=== PATIENT | female | born 1950 | race Caucasian/White ===

== ENCOUNTER 2018-01-22 08:13 | Outpatient (CLI) | payer MEDICARE ==
[2018-01-22 12:21] LABS: CHOL/HDL RATIO 3.1 (<4.4); CHOLESTEROL 228 mg/dL; HDL CHOLESTEROL 74 mg/dL; LDL CHOLESTEROL,CALCULATED 136 mg/dL; LDL/HDL RATIO 1.8 (<4.4); VLDL CHOLESTEROL 18 mg/dL
== END 2018-01-22 08:14 | disposition home or self-care (01) ==
LOC: LAB.F 08:13
PROVIDERS: ATTEND Nurse Practitioner Primary Care
DX: E78.5 Hyperlipidemia, unspecified (principal)
CPT/HCPCS: 36415; 80061; 83721

== ENCOUNTER 2018-01-22 12:50 | Outpatient (CLI) | payer MEDICARE ==
--- NOTE | 2018-01-24 12:30 | Mammography Report ---
Reason: SCREEN w HORACIO Procedure Date: 01/22/2018 Accession Number: [id number] / [id number] Procedure: CRISTOBAL - Screening Mammo w/Horacio CPT Code: FULL RESULT: EXAM: Screening Mammo w/Horacio DATE: 01/22/2018 1:16 PM CLINICAL HISTORY: Routine screening; prior history of benign breast surgery. TECHNIQUE: Bilateral CC and MLO views were obtained. COMPARISON: 03/08/2016, 02/09/2015, 05/07/2014, 05/04/2013 and 04/23/2012 FINDINGS: The breast tissue is heterogeneously dense. No significant interval change. No suspicious masses, clustered microcalcifications, or regions of architectural distortion are identified. IMPRESSION: Negative examination. RECOMMENDATION: Routine annual screening unless otherwise clinically indicated. BIRADS CATEGORY 1: Negative STANDARD QUALIFYING STATEMENTS: 1. This examination was not reviewed with the aid of Computer-Aided Detection (CAD). 2. A negative or benign imaging report should not delay biopsy if clinically suspicious findings are present. Consider surgical consultation if warrented. More than 5% of cancers are not identified by imaging. 3. Dense breasts may obscure an underlying neoplasm. 4. This examination was reviewed with the aid of 3D breast imaging (tomosynthesis).
== END 2018-01-22 12:51 | disposition home or self-care (01) ==
LOC: DI 12:50
DX: Z12.31 Encounter for screening mammogram for malignant neoplasm of breast (principal)
CPT/HCPCS: 77063; 77067

== ENCOUNTER 2018-01-30 08:31 | Outpatient (CLI) | payer MEDICARE ==
[2018-01-30 10:16] LABS: BASOPHILS % (AUTO) 1.3 %; EOSINOPHILS # (AUTO) 0.1 10^3/uL (0.0-0.7); HGB - HEMOGLOBIN 13.3 g/dL (12.0-16.0); LYMPHOCYTES % (AUTO) 27.4 %; MEAN CORPUSCULAR HGB CONC 34.4 g/dL (32.0-36.0); MEAN PLATELET VOLUME 8.1 fL (7.9-10.8); MONOCYTES # (AUTO) 0.3 10^3/uL (0.0-1.0); MONOCYTES % (AUTO) 8.4 %; NEUTROPHILS # (AUTO) 2.3 10^3/uL (1.5-6.6); NEUTROPHILS % (AUTO) 59.9 %; PLT - PLATELET COUNT 186 10^3/uL (130-450); RED BLOOD COUNT 4.29 10^6/uL (4.20-5.40); RED CELL DISTRIBUTION WIDTH 12.7 % (12.0-15.0); WHITE BLOOD COUNT 3.8 x10^3/uL (4.8-10.8)
[2018-01-30 10:49] LABS: ALBUMIN/GLOBULIN RATIO 1.6 (1.0-2.2); CREATININE 0.7 mg/dL (0.4-1.0); TOTAL PROTEIN 6.5 g/dL (6.7-8.2)
[2018-01-30 11:06] LABS: HEMOGLOBIN A1C 0.53 g/dL; HEMOGLOBIN A1C % 5.6 % (4.6-6.2)
== END 2018-01-30 08:32 | disposition home or self-care (01) ==
LOC: LAB.F 08:31
PROVIDERS: ATTEND Nurse Practitioner Primary Care
DX: E78.5 Hyperlipidemia, unspecified (principal); Z79.899 Other long term (current) drug therapy
CPT/HCPCS: 36415; 80053; 83036; 84443; 85025

== ENCOUNTER 2018-02-11 09:47 | Outpatient (CLI) | payer MEDICARE ==
--- NOTE | 2018-02-12 12:02 | DEXA Report ---
Reason: POST MENOPAUSAL Procedure Date: 02/11/2018 Accession Number: [id number] / [id number] Procedure: DEX - Dexa Spine and/or Hip CPT Code: FULL RESULT: EXAM: Dexa Spine and/or Hip DATE: 02/11/2018 12:12 PM CLINICAL HISTORY: POST MENOPAUSAL TECHNIQUE: Dual energy x-ray absorptiometry (DXA) was performed on a [employer] System. Regions measured are the AP Spine, femoral neck, and if needed forearm. COMPARISON: None. In accordance with the International Society for Clinical Densitometry (ISCD) guidelines, data from previous exams may be reanalyzed using current recommendations and techniques. This is done to allow a more accurate basis for comparison with the current study. FINDINGS: The data for the lumbar spine is as follows: BMD (g/cm/cm) T-SCORE Z-SCORE REGION L1 1.232 0.8 2.3 L2 1.317 1.0 2.4 L3 1.392 1.6 3.1 L4 1.393 1.6 3.1 TOTAL 1.339 1.3 2.8 NOTE: All evaluable vertebrae are used for classification The data for the hip is as follows: BMD (g/cm/cm) T-SCORE Z-SCORE REGION Neck 0.834 -1.5 0.0 TOTAL 0.898 -0.9 0.4 NOTE: The femoral neck or total proximal femur, whichever is lowest, is used for classification. IMPRESSION: THE WHO CLASSIFICATION BASED ON THE INTERNATIONAL REFERENCE STANDARD IS OSTEOPENIA. THE FRACTURE RISK IS INCREASED. RECOMMENDATION: Patients with diagnosis of osteoporosis or osteopenia should have regular bone mineral density assessment. For those eligible for Medicare, routine testing is allowed once every 2 years. Testing frequency can be increased for patients who have rapidly progressing disease or for those who are receiving medical therapy to restore bone mass. COMMENT: World Health Organization (WHO) definitions for osteoporosis and osteopenia: NORMAL BMD: T-score at -1.0 or higher, fracture risk is low OSTEOPENIA BMD: T-score between -1.0 and -2.5, fracture risk is increased. OSTEOPOROSIS BMD: T-score at -2.5 or lower, fracture risk is high. National Osteoporosis Foundation recommends: 1. Obtain adequate dietary calcium (at least 1200 mg per day) and vitamin D (400-800 international units per day). 2. Participate, as appropriate, in regular weightbearing and muscle-strengthening exercise. 3. Avoid tobacco use and reduce alcohol and caffeine intake. 4. For more detailed information see the website at www.NOF.org.
== END 2018-02-11 09:48 | disposition home or self-care (01) ==
LOC: DI 09:47
PROVIDERS: ATTEND Nurse Practitioner Primary Care
DX: M85.89 Other specified disorders of bone density and structure, multiple sites (principal); Z78.0 Asymptomatic menopausal state
CPT/HCPCS: 77080

== ENCOUNTER 2018-03-25 13:00 | Outpatient (CLI) | payer MEDICARE ==
--- NOTE | 2018-03-26 16:00 | XRAY Report ---
Reason: BURSITIS,LEFT KNEE,KNEE JOIN PAIN,LEFT Procedure Date: 03/25/2018 Accession Number: [id number] / [id number] Procedure: XR - Knee 4 View LT CPT Code: FULL RESULT: EXAM: LEFT KNEE RADIOGRAPHY EXAM DATE: 03/25/2018 01:35 PM. CLINICAL HISTORY: BURSITIS,LEFT KNEE,KNEE JOIN PAIN,LEFT. COMPARISON: None. TECHNIQUE: 4 views. FINDINGS: Bones: Normal. No fractures or bone lesions. Joints: Spurring of the tibial spines is noted. Mild left medial joint space narrowing. No effusions. Normal alignment. Soft Tissues: Normal. No soft tissue swelling. IMPRESSION: 1. Mild left medial compartment arthritis. 2. No fracture or malalignment. 3. No effusions. RADIA
== END 2018-03-25 13:01 | disposition home or self-care (01) ==
LOC: DI 13:00
PROVIDERS: ATTEND Nurse Practitioner Primary Care
DX: M17.12 Unilateral primary osteoarthritis, left knee (principal); M70.52 Other bursitis of knee, left knee

== ENCOUNTER 2019-04-29 09:46 | Outpatient (CLI) | payer MEDICARE ==
[2019-04-29 18:16] LABS: ALBUMIN 3.7 g/dL (3.2-5.5); ALBUMIN/GLOBULIN RATIO 1.4 (1.0-2.2); ALKALINE PHOSPHATASE 74 IU/L (42-121); ALT ALANINE AMINOTRANSFERASE 30 IU/L (10-60); AST ASPARTATE AMINOTRANSFERASE 33 IU/L (10-42); BILIRUBIN,TOTAL 0.5 mg/dL (0.2-1.0); BUN - BLOOD UREA NITROGEN 14 mg/dL (6-20); CALCIUM 8.7 mg/dL (8.5-10.3); CARBON DIOXIDE - CO2 27 mmol/L (21-32); CHLORIDE 106 mmol/L (101-111); CHOL/HDL RATIO 3.1 (<4.4); CHOLESTEROL 208 mg/dL; CREATININE 0.7 mg/dL (0.4-1.0); GFR - MDRD 83 (>89); GLUCOSE 106 mg/dL (70-100); HDL CHOLESTEROL 68 mg/dL; LDL CHOLESTEROL,CALCULATED 128 mg/dL; LDL/HDL RATIO 1.9 (<4.4); SODIUM 139 mmol/L (135-145); TOTAL PROTEIN 6.4 g/dL (6.7-8.2); VLDL CHOLESTEROL 12 mg/dL
== END 2019-04-29 09:47 | disposition home or self-care (01) ==
LOC: LAB.S 09:46
PROVIDERS: ATTEND Internal Medicine
DX: E78.5 Hyperlipidemia, unspecified (principal)
CPT/HCPCS: 36415; 80053; 80061; 83721

== ENCOUNTER 2019-08-03 16:44 | Outpatient (CLI) | payer MEDICARE | END 2019-08-03 16:45 | disposition home or self-care (01) | LOC: COV 16:44 | PROVIDERS: ATTEND Family Medicine | DX: R06.02 Shortness of breath (principal); J02.9 Acute pharyngitis, unspecified | CPT/HCPCS: 81599 ==

== ENCOUNTER 2019-11-06 12:20 | Outpatient (CLI) | payer MEDICARE | END 2019-11-06 12:21 | disposition home or self-care (01) | LOC: COV 12:20 | PROVIDERS: ATTEND Family Medicine | DX: J02.9 Acute pharyngitis, unspecified (principal); Z20.828 Contact with and (suspected) exposure to other viral communicable diseases ==

== ENCOUNTER 2020-04-18 13:02 | Outpatient (CLI) | payer MEDICARE ==
--- NOTE | 2020-04-18 13:30 | XRAY Report ---
PROCEDURE: Ankle 3 View LT INDICATIONS: LEFT ANKLE PAIN TECHNIQUE: 3 views of the ankle were acquired. COMPARISON: None. FINDINGS: Bones: No fractures or dislocations are found involving the hindfoot, however there is a minimally d isplaced lateral malleolar fracture, centered just above the ankle mortise joint axial level. The brian nt itself is not widened. There may be a thin avulsion fragment at the inferior tip of the medial mal leolus.. Ankle mortise is normally aligned. No suspicious bony lesions. Soft tissues: No tibiotalar joint effusion. Achilles tendon appears normal. IMPRESSION: Definite metadiaphyseal junction fracture, minimally displaced, involving the lateral ma lleolus/distal fibular. Possible thin avulsion fragment at the inferior tip of the medial malleolus. Ankle mortise joint currently is not displaced. Reviewed by: Milton Khan MD on 04/18/2020 1:29 PM [facility] Approved by: Milton Khan MD on 04/18/2020 1:29 PM [facility] Station ID: [id number]
== END 2020-04-18 23:59 | disposition home or self-care (01) ==
LOC: DI.S 13:02
PROVIDERS: ATTEND Physician Assistant
DX: S82.62XA Displaced fracture of lateral malleolus of left fibula, initial encounter for closed fracture (principal)

== ENCOUNTER 2020-04-22 11:23 | Outpatient (CLI) | payer MEDICARE ==
--- NOTE | 2020-04-22 16:40 | XRAY Report ---
PROCEDURE: Ankle 3 View LT INDICATIONS: LEFT ANKLE Fx- EXAM WB TECHNIQUE: 3 views of the ankle were acquired. COMPARISON: 04/18/2020 FINDINGS: Bones: Stable appearance and alignment of known oblique fracture of the distal left fibula. Previousl y described curvilinear ossification near the tip of the medial malleolus is not appreciated on today 's exam. Ankle mortise is normally aligned. No suspicious bony lesions. Small retrocalcaneal spur. Soft tissues: Small anterior tibiotalar joint effusion. Achilles tendon appears normal. IMPRESSION: Stable appearance and alignment of oblique fracture of the distal left fibula. Previously described possible avulsion fragment involving the inferior tip of the medial malleolus is not appreciated on this study. Ankle mortise is preserved. Reviewed by: Lennox Arriola MD on 04/22/2020 3:39 PM [facility] Approved by: Lennox Arriola MD on 04/22/2020 3:39 PM [facility] Station ID: [id number]
== END 2020-04-22 11:24 | disposition home or self-care (01) ==
LOC: DI.N 11:23
PROVIDERS: ATTEND Physician Assistant
DX: S82.892A Other fracture of left lower leg, initial encounter for closed fracture (principal)

== ENCOUNTER 2020-05-02 09:11 | Outpatient (CLI) | payer MEDICARE ==
[2020-05-02 15:17] LABS: BASOPHILS # (AUTO) 0.1 10^3/uL (0.0-0.1); BASOPHILS % (AUTO) 1.7 %; EOSINOPHILS # (AUTO) 0.2 10^3/uL (0.0-0.7); EOSINOPHILS % (AUTO) 4.5 %; HGB - HEMOGLOBIN 12.7 g/dL (12.0-16.0); LYMPHOCYTES # (AUTO) 0.8 10^3/uL (1.5-3.5); MEAN CORPUSCULAR HEMOGLOBIN 28.8 pg (27.0-31.0); MEAN CORPUSCULAR HGB CONC 31.5 g/dL (32.0-36.0); MEAN CORPUSCULAR VOLUME 91.4 fL (81.0-99.0); MEAN PLATELET VOLUME 10.1 fL (7.9-10.8); MONOCYTES # (AUTO) 0.4 10^3/uL (0.0-1.0); MONOCYTES % (AUTO) 8.6 %; NEUTROPHILS # (AUTO) 2.8 10^3/uL (1.5-6.6); PLT - PLATELET COUNT 205 10^3/uL (130-450); RED BLOOD COUNT 4.41 10^6/uL (4.20-5.40); RED CELL DISTRIBUTION WIDTH 13.4 % (12.0-15.0); WHITE BLOOD COUNT 4.2 x10^3/uL (4.8-10.8)
[2020-05-02 15:50] LABS: ALBUMIN/GLOBULIN RATIO 1.5 (1.0-2.2); ALKALINE PHOSPHATASE 82 IU/L (42-121); ALT ALANINE AMINOTRANSFERASE 19 IU/L (10-60); AST ASPARTATE AMINOTRANSFERASE 26 IU/L (10-42); BILIRUBIN,TOTAL 0.8 mg/dL (0.2-1.0); BUN - BLOOD UREA NITROGEN 14 mg/dL (6-20); CALCIUM 9.3 mg/dL (8.5-10.3); CARBON DIOXIDE - CO2 30 mmol/L (21-32); CHLORIDE 106 mmol/L (101-111); CHOL/HDL RATIO 3.1 (<4.4); CHOLESTEROL 185 mg/dL; CREATININE 0.7 mg/dL (0.4-1.0); GLUCOSE 102 mg/dL (70-100); HDL CHOLESTEROL 59 mg/dL; LDL CHOLESTEROL,CALCULATED 106 mg/dL; LDL/HDL RATIO 1.8 (<4.4); TOTAL PROTEIN 6.6 g/dL (6.7-8.2); VLDL CHOLESTEROL 20 mg/dL
== END 2020-05-02 09:12 | disposition home or self-care (01) ==
LOC: LAB.S 09:11
PROVIDERS: ATTEND Internal Medicine
DX: Z00.00 Encounter for general adult medical examination without abnormal findings (principal); E78.5 Hyperlipidemia, unspecified
CPT/HCPCS: 36415; 80053; 80061; 83721; 85025

== ENCOUNTER 2020-05-18 10:49 | Outpatient (CLI) | payer MEDICARE ==
--- NOTE | 2020-05-18 15:40 | DEXA Report ---
PROCEDURE: Dexa Spine and/or Hip INDICATIONS: POST MENOPAUSAL TECHNIQUE: Dual energy x-ray absorptiometry (DXA) was performed on a [employer]ation System. Regions measur ed are the AP Spine, femoral neck, and if needed forearm. COMPARISON: Dexa, 02/11/2018. FINDINGS: Lumbar Spine: Bone Mineral Density 1.409 g/cm/cm,T score 1.9, improved Left Hip: Bone Mineral Density 0.887 g/cm/cm,T score , -1.0, not significantly changed Left Femoral Neck: Bone Mineral Density 0.847 g/cm/cm, T score -1.4, (T score greater or equal to -1.0: NORMAL) (T score from -1.1 to -2.4: OSTEOPENIA) (T score less than or equal to -2.5 to: OSTEOPOROSIS) Impression: Based on WHO criteria, the patient is osteopenic. Compared to the last exam on 02/11/2018 , the patient's bone mineral density of the lumbar spine is improved. The patient's bone mineral dens ity of the left femoral head and neck is unchanged. Patients with diagnosis of osteoporosis or osteopenia should have regular bone mineral density assess ment. For those eligible for Medicare, routine testing is allowed once every 2 years. Testing frequ ency can be increased for patients who have rapidly progressing disease or for those who are receivin g medical therapy to restore bone mass. Reviewed by: Reed Manrique MD on 05/18/2020 3:39 PM PST Approved by: Reed Manrique MD on 05/18/2020 3:39 PM PST Station ID: [id number]
== END 2020-05-18 10:50 | disposition home or self-care (01) ==
LOC: DI 10:49
PROVIDERS: ATTEND Internal Medicine
DX: M85.89 Other specified disorders of bone density and structure, multiple sites (principal); Z78.0 Asymptomatic menopausal state

== ENCOUNTER 2020-06-06 11:18 | Outpatient (CLI) | payer MEDICARE ==
--- NOTE | 2020-06-06 11:42 | XRAY Report ---
PROCEDURE: Ankle 3 View LT INDICATIONS: LEFT ANKLE FRACTURE TECHNIQUE: 3 views of the ankle were acquired. COMPARISON: Left ankle radiographs dated 04/22/2020 FINDINGS: Bones: A minimally displaced fracture of the left fibular metaphysis is redemonstrated with periostea l reaction that is compatible with progressive healing changes. No new osseous abnormality is seen. A posterior calcaneal spur is present. Soft tissues: Soft tissue edema is seen surrounding the ankle. IMPRESSION: Progressive interval healing changes involving the distal fibular fracture with unchange d alignment. Reviewed by: Gregory Alonso MD on 06/06/2020 11:40 AM PST Approved by: Gregory Alonso MD on 06/06/2020 11:40 AM PST Station ID: [id number]
== END 2020-06-06 23:59 | disposition home or self-care (01) ==
LOC: DI.N 11:18
PROVIDERS: ATTEND Physician Assistant
DX: S82.832D Other fracture of upper and lower end of left fibula, subsequent encounter for closed fracture with routine healing (principal)

== ENCOUNTER 2021-05-12 07:56 | Outpatient (CLI) | payer MEDICARE ==
[2021-05-12 14:38] LABS: BASOPHILS # (AUTO) 0.1 10^3/uL (0.0-0.1); BASOPHILS % (AUTO) 1.5 %; EOSINOPHILS # (AUTO) 0.1 10^3/uL (0.0-0.7); EOSINOPHILS % (AUTO) 2.9 %; HCT - HEMATOCRIT 38.6 % (37.0-47.0); HGB - HEMOGLOBIN 12.6 g/dL (12.0-16.0); LYMPHOCYTES # (AUTO) 1.3 10^3/uL (1.5-3.5); LYMPHOCYTES % (AUTO) 31.2 %; MEAN CORPUSCULAR HEMOGLOBIN 30.1 pg (27.0-31.0); MEAN CORPUSCULAR HGB CONC 32.6 g/dL (32.0-36.0); MEAN CORPUSCULAR VOLUME 92.3 fL (81.0-99.0); MEAN PLATELET VOLUME 10.1 fL (7.9-10.8); MONOCYTES # (AUTO) 0.4 10^3/uL (0.0-1.0); MONOCYTES % (AUTO) 8.5 %; NEUTROPHILS # (AUTO) 2.3 10^3/uL (1.5-6.6); NEUTROPHILS % (AUTO) 55.7 %; PLT - PLATELET COUNT 193 10^3/uL (130-450); RED BLOOD COUNT 4.18 10^6/uL (4.20-5.40); WHITE BLOOD COUNT 4.1 x10^3/uL (4.8-10.8)
[2021-05-12 14:55] LABS: ALBUMIN 3.9 g/dL (3.2-5.5); ALBUMIN/GLOBULIN RATIO 1.4 (1.0-2.2); ALKALINE PHOSPHATASE 78 IU/L (42-121); ALT ALANINE AMINOTRANSFERASE 21 IU/L (10-60); AST ASPARTATE AMINOTRANSFERASE 27 IU/L (10-42); BILIRUBIN,TOTAL 0.6 mg/dL (0.2-1.0); BUN - BLOOD UREA NITROGEN 14 mg/dL (6-20); CARBON DIOXIDE - CO2 30 mmol/L (21-32); CHLORIDE 103 mmol/L (101-111); CHOL/HDL RATIO 3.2 (<4.4); CHOLESTEROL 219 mg/dL; CREATININE 0.7 mg/dL (0.4-1.0); GFR - MDRD 82 (>89); GLUCOSE 103 mg/dL (70-100); HDL CHOLESTEROL 69 mg/dL; LDL CHOLESTEROL,CALCULATED 132 mg/dL; LDL/HDL RATIO 1.9 (<4.4); POTASSIUM 4.4 mmol/L (3.5-5.0); SODIUM 138 mmol/L (135-145); TOTAL PROTEIN 6.7 g/dL (6.7-8.2); TRIGLYCERIDES 88 mg/dL; VLDL CHOLESTEROL 18 mg/dL
[2021-05-12 16:40] LABS: FECAL OCCULT BLOOD (FIT) NEGATIVE (NEGATIVE)
== END 2021-05-12 07:57 | disposition home or self-care (01) ==
LOC: LAB.S 07:56
PROVIDERS: ATTEND Internal Medicine
DX: Z00.00 Encounter for general adult medical examination without abnormal findings (principal); E78.5 Hyperlipidemia, unspecified; Z79.899 Other long term (current) drug therapy
CPT/HCPCS: 36415; 80053; 80061; 82274; 83721; 85025

== ENCOUNTER 2022-05-10 09:57 | Outpatient (CLI) | payer MEDICARE ==
--- NOTE | 2022-05-10 12:59 | XRAY Report ---
PROCEDURE: Knee 2 View LT INDICATIONS: KNEE PAIN,LEFT TECHNIQUE: 2 views of the left knee were acquired. COMPARISON: Left knee radiographs 03/25/2018. FINDINGS: Bones: No acute fractures or dislocations. No suspicious bony lesions. Moderate joint space narrow ing at the medial femorotibial compartment with marginal osteophyte formation, progressed when compar ed to the exam from 03/25/2018. Soft tissues: No joint effusion. No suspicious soft tissue calcifications. IMPRESSION: Moderate medial compartment osteoarthrosis has mildly progressed when compared to the ra diographs from 03/25/2018. Reviewed by: Gregory Alonso MD on 05/10/2022 12:58 PM PST Approved by: Gregory Alonso MD on 05/10/2022 12:58 PM PST Station ID: [id number]
== END 2022-05-10 09:58 | disposition home or self-care (01) ==
LOC: DI.S 09:57
PROVIDERS: ATTEND Registered Nurse
DX: M17.12 Unilateral primary osteoarthritis, left knee (principal)

== ENCOUNTER 2022-10-17 22:44 | Emergency (ER) | payer MEDICARE ==
--- NOTE | 2022-10-18 00:15 | ED Physician Documentation ---
History of Present Illness - Stated complaint Stated Complaint: FEMALE - Chief complaint Chief Complaint: General - History obtained from History obtained from: Patient - Additonal information Additional information: 72yF presents after experiencing tissue protruding from her vagina and pain while having a bowel movement today. never had this happen before. denies urinary sx. 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 closed cervix with physiologic discharge. nontender on exam) - Derm Derm: Normal color, Warm and dry Results - Vitals Vitals: Vital Signs - 24 hr 10/17/22 22:47 Temperature 35.5 C L Heart Rate 70 Respiratory 18 Rate Blood Pressure 178/89 H O2 Saturation 99 Oxygen O2 Source Room air PD Medical Decision Making - ED course ED course: 72yF p/w tissue protruding from vagina while having a BM earlier. DDX includes cystocoele, uterine prolapse, mass. Management Professor exam was benign. recommended outpatient f/u with urogynecology. return precautions given. Departure - Departure Disposition: 01 Home, Self Care Clinical Impression: Incomplete uterine prolapse Condition: Good Instructions: Jonna Sanabria Comments: You were seen in the ED for a vaginal exam. You likely experienced a prolapse of either your uterus or the tissue surrounding your urinary bladder out your vagina while pooping today. Please follow up with your primary care provider for referral to urogynecology. return to the ED for other concerns.
[2022-10-18 00:29] VITALS: BP 164/84
== END 2022-10-18 00:22 | disposition home or self-care (01) ==
LOC: ED 22:44
DX: N81.2 Incomplete uterovaginal prolapse (principal)
CPT/HCPCS: 99281; 99283

== ENCOUNTER 2023-06-19 07:30 | Outpatient (CLI) | payer MEDICARE ==
[2023-06-19 14:56] LABS: EOSINOPHILS # (AUTO) 0.1 10^3/uL (0.0-0.7); EOSINOPHILS % (AUTO) 2.5 %; HGB - HEMOGLOBIN 12.6 g/dL (12.0-16.0); LYMPHOCYTES # (AUTO) 1.1 10^3/uL (1.5-3.5); LYMPHOCYTES % (AUTO) 27.5 %; MEAN CORPUSCULAR HEMOGLOBIN 29.9 pg (27.0-31.0); MEAN CORPUSCULAR HGB CONC 32.3 g/dL (32.0-36.0); MEAN CORPUSCULAR VOLUME 92.4 fL (81.0-99.0); MEAN PLATELET VOLUME 10.3 fL (7.9-10.8); MONOCYTES # (AUTO) 0.3 10^3/uL (0.0-1.0); MONOCYTES % (AUTO) 8.3 %; NEUTROPHILS # (AUTO) 2.4 10^3/uL (1.5-6.6); NEUTROPHILS % (AUTO) 60.4 %; PLT - PLATELET COUNT 194 10^3/uL (130-450); RED BLOOD COUNT 4.22 10^6/uL (4.20-5.40); RED CELL DISTRIBUTION WIDTH 13.2 % (12.0-15.0)
[2023-06-19 15:29] LABS: ALBUMIN/GLOBULIN RATIO 1.6 (1.0-2.2); ALKALINE PHOSPHATASE 81 IU/L (42-121); ALT ALANINE AMINOTRANSFERASE 13 IU/L (10-60); AST ASPARTATE AMINOTRANSFERASE 20 IU/L (10-42); BILIRUBIN,TOTAL 0.6 mg/dL (0.2-1.0); BUN - BLOOD UREA NITROGEN 17 mg/dL (6-20); CALCIUM 9.5 mg/dL (8.5-10.3); CARBON DIOXIDE - CO2 32 mmol/L (21-32); CHLORIDE 107 mmol/L (101-111); CHOLESTEROL 206 mg/dL; CREATININE 0.8 mg/dL (0.6-1.3); GFR - MDRD 70 (>89); GLUCOSE 98 mg/dL (74-104); HDL CHOLESTEROL 69 mg/dL; LDL CHOLESTEROL,CALCULATED 115 mg/dL; LDL/HDL RATIO 1.7 (<4.4); POTASSIUM 4.3 mmol/L (3.5-4.5); SODIUM 140 mmol/L (135-145); TOTAL PROTEIN 6.5 g/dL (6.4-8.9); TRIGLYCERIDES 110 mg/dL (48-352); VLDL CHOLESTEROL 22 mg/dL
[2023-06-19 15:36] LABS: THYROID STIMULATING HORMONE 3.42 uIU/mL (0.34-5.60)
== END 2023-06-19 07:31 | disposition home or self-care (01) ==
LOC: LAB.S 07:30
PROVIDERS: ATTEND Registered Nurse
DX: Z13.220 Encounter for screening for lipoid disorders (principal); Z13.29 Encounter for screening for other suspected endocrine disorder; Z79.899 Other long term (current) drug therapy
CPT/HCPCS: 36415; 80053; 80061; 83721; 84443; 85025

== ENCOUNTER 2023-07-23 09:49 | Outpatient (CLI) | payer MEDICARE ==
--- NOTE | 2023-07-24 10:53 | Mammography Report ---
BILATERAL DIGITAL SCREENING MAMMOGRAM 3D/2D WITH EXAGGERATED CC: 07/23/2023 CLINICAL: Routine screening. Comparison is made to exams dated: 01/22/2018 mammogram - [facility], 03/08/2016 [facility] mmogram, and 02/09/2015 mammogram - [facility]. There are scattered areas of fibroglandular density in both breasts (category b / 25%-50% glandular t issue). There is a possible oval equal density asymmetry with an obscured and indistinct margin in the right breast anterior depth central to the nipple seen on the craniocaudal view only. No other significant masses, calcifications, or other findings are seen in either breast. IMPRESSION: INCOMPLETE: NEEDS ADDITIONAL IMAGING EVALUATION The possible oval equal density asymmetry in the right breast is indeterminate. Additional views wit h possible ultrasound are recommended. Based on the Tyrer Cuzick model (a risk assessment model) the patient's lifetime risk is 3.5% and her 10 year risk is 3.1%. According to the ACR, ACS, and NCCN guidelines, an annual breast MRI exam georges g with mammogram is recommended if the patient's lifetime risk is 20% or greater. This exam was interpreted at Station ID: [id number]. NOTE: For mammograms, a report in lay terms will be sent to the patient. Approximately 15% of breast malignancies will not be visualized mammographically. In the management of a palpable breast mass, a negative mammogram must not discourage biopsy of a clinically suspicious lesion. Electronically Signed By: Madalyn almendarez/edis:07/23/2023 16:44:06 ACR BI-RADS Category 0: Incomplete 3340F PARENCHYMAL PATTERN: (A) - The breast(s) demonstrate(s) scattered fibroglandular densities. BI-RADS CATEGORY: (0) - 0 Mammo and [place] [id number] Immediate follow-up LATERALITY: (B)
== END 2023-07-23 09:50 | disposition home or self-care (01) ==
LOC: DI.S 09:49
PROVIDERS: ATTEND Registered Nurse
DX: Z12.31 Encounter for screening mammogram for malignant neoplasm of breast (principal); R92.8 Other abnormal and inconclusive findings on diagnostic imaging of breast; R92.323 Mammographic fibroglandular density, bilateral breasts

== ENCOUNTER 2023-08-23 07:56 | Outpatient (CLI) | payer MEDICARE ==
--- NOTE | 2023-08-26 10:47 | Mammography Report ---
UNILATERAL RIGHT DIGITAL DIAGNOSTIC MAMMOGRAM 3D/2D WITH SPOT COMPRESSION: 08/23/2023 CLINICAL: Patient returns today to evaluate an asymmetry in the right breast. Comparison is made to exams dated: 07/23/2023 [facility], [facility], 01/22/2018 mammogram - [facility], mammogram, and 05/07/2014 mammogram - [facility]. There are scattered areas of fibroglandular density in the right breast (category b / 25%-50% glandul ar tissue). There is a possible equal density asymmetry in the right breast anterior depth central to the nipple seen on the craniocaudal view only. This is not seen in additional views. No other significant masses or calcifications are seen in the breast. IMPRESSION: INCOMPLETE: NEEDS ADDITIONAL IMAGING EVALUATION The possible equal density asymmetry in the right breast is indeterminate. An ultrasound is recommen ded. Based on the Tyrer Cuzick model (a risk assessment model) the patient's lifetime risk is 3.5% and her 10 year risk is 3.1%. According to the ACR, ACS, and NCCN guidelines, an annual breast MRI exam georges g with mammogram is recommended if the patient's lifetime risk is 20% or greater. This exam was interpreted at Station ID: [id number]. NOTE: For mammograms, a report in lay terms will be sent to the patient. Approximately 15% of breast malignancies will not be visualized mammographically. In the management of a palpable breast mass, a negative mammogram must not discourage biopsy of a clinically suspicious lesion. Electronically Signed By: Dylan casanova/edis:08/23/2023 08:52:47 ACR BI-RADS Category 0: Incomplete 3340F PARENCHYMAL PATTERN: (A) - The breast(s) demonstrate(s) scattered fibroglandular densities. BI-RADS CATEGORY: (0) - 0 Ultrasound [id number] Immediate follow-up LATERALITY: (B)
--- NOTE | 2023-08-26 10:47 | Ultrasound Report ---
LIMITED ULTRASOUND OF RIGHT BREAST: 08/23/2023 CLINICAL: Patient returns today to evaluate a focal asymmetry in the right breast. Comparison is made to exams dated: 08/23/2023 mammogram, 07/23/2023 mammogram - [facility], 03/08/2016 mammogram - [facility], 01/22/2018 mammogram - [facility], 02/09/2015 mammogram, and 05/07/2014 mammogram - [facility] . Ultrasound of the right breast 8-10 o'clock region was performed. Salas scale images of the real-time examination were reviewed. No significant abnormalities were seen sonographically in the right breast. IMPRESSION: NEGATIVE There is no sonographic evidence of malignancy. There is no abnormality seen in the right breast to correspond with the mammography finding. Return to annual mammogram screening schedule is recommended. This exam was interpreted at Station ID: [id number]. Electronically Signed By: Dylan Atkins M.D. lc/:08/23/2023 08:53:27 letter sent: No_Letter Ultrasound BI-RADS: 1 Negative BI-RADS CATEGORY: (1) - 1 Mammogram [id number] return to screening LATERALITY: (B)
== END 2023-08-23 07:57 | disposition home or self-care (01) ==
LOC: DI 07:56
PROVIDERS: ATTEND Registered Nurse
DX: R92.8 Other abnormal and inconclusive findings on diagnostic imaging of breast (principal)